=== PATIENT | female | born 1970 ===

== ENCOUNTER 2016-09-02 12:16 | Emergency (ER) | payer MEDICAID ==
[2016-09-02 12:25] VITALS: BMI 34.0
[2016-09-02 12:28] VITALS: O2SAT 98
[2016-09-02] MEDS ORDERED: Sodium Chloride 0.9% 1,000 ML IV ONE (13:19)
--- NOTE | 2016-09-02 13:23 | C.PDOC ---
History Of Present Illness <Lisy Aguilar DO - Last Filed: 09/02/16 13:20> <Jack Mendoza - Last Filed: 09/03/16 13:57> Patient is a 46 year old female with past medical history of HTN, uterine fibroids, and anemia requiring transfusion 2 years ago who presents to the ED with complaint of dizziness for two days. Patient states that she feels she will faint when she feels the dizziness. Patient also complains of shortness of breath and generalized weakness. Patient reports an ER visit at another hospital approximately one month ago for chest tightness. Patient states at that time she was given albuterol treatment and symptoms resolved. Patient denies those symptoms currently. Patient also states she has been without her hypertensive medication for one week. She states she was seeing a physician in [place], but since moving back to [place] has not seen a doctor and has been without medication. Patient denies nausea, vomiting, rectal/ vaginal bleeding. ( Lisy Aguilar DO) History Per: Patient History/Exam Limitations: no limitations Onset/Duration Of Symptoms: Days Current Symptoms Are (Timing): Still Present Activity At Onset Of Symptoms: Walking Fall Associated With With Symptoms: No Severity: Mild <Lisy Aguilar DO - Last Filed: 09/02/16 13:20> <Jack Mendoza - Last Filed: 09/03/16 13:57> Time Seen by Provider: 09/02/16 12:47 Chief Complaint (Nursing): Dizziness/Lightheaded Past Medical History - Medical History PMH: Anemia, Asthma, HTN Denies: Chronic Kidney Disease - Social History Hx Tobacco Use: No Hx Alcohol Use: No Hx Substance Use: No - Immunization History Hx Tetanus Toxoid Vaccination: No Hx Influenza Vaccination: No Hx Pneumococcal Vaccination: No <Lisy Aguilar DO - Last Filed: 09/02/16 13:20> Family History: States: Other (nc) <Jack Mendoza - Last Filed: 09/03/16 13:57> Vital Signs: Last Vital Signs Temp 98.3 F 09/02/16 17:01 Pulse 83 09/02/16 17:01 Resp 18 09/02/16 17:01 BP 122/79 09/02/16 17:01 Pulse Ox 98 09/02/16 17:01 - [facility] Procedures CLOSED ENDOSCOPIC BIOPSY OF LARGE INTESTINE (09/01/14) ESOPHAGOGASTRODUODENOSCOPY [EGD] W/CLOSED BIOPSY (09/01/14) Review Of Systems Constitutional: Positive for: Weakness. Negative for: Fever, Chills ENT: Negative for: Nose Congestion Cardiovascular: Positive for: Light Headedness. Negative for: Chest Pain, Palpitations Respiratory: Positive for: SOB with Excertion. Negative for: Wheezing Gastrointestinal: Negative for: Nausea, Vomiting, Abdominal Pain Genitourinary: Negative for: Dysuria <Lisy Aguilar DO - Last Filed: 09/02/16 13:20> Physical Exam - Physical Exam Appears: Well, Non-toxic, No Acute Distress Skin: Normal Color Head: Atraumatic, Normacephalic Eye(s): bilateral: PERRL, EOMI Nose: Normal, No Discharge Oral Mucosa: Moist Tongue: Normal Appearing Lips: Normal Appearing Neck: Normal ROM Cardiovascular: Rhythm Regular Respiratory: Normal Breath Sounds Gastrointestinal/Abdominal: Soft, No Tenderness Neurological/Psych: Oriented x3, Normal Speech, Normal Cranial Nerves <Lisy Aguilar DO - Last Filed: 09/02/16 13:20> ED Course And Treatment O2 Sat by Pulse Oximetry: 98 <Lisy Aguilar DO - Last Filed: 09/02/16 13:20> - Laboratory Results Result Diagrams: 09/02/16 14:32 09/02/16 14:32 <Jack Mendoza - Last Filed: 09/03/16 13:57> Medical Decision Making <Lisy Aguilar DO - Last Filed: 09/02/16 13:20> <Jack Mendoza - Last Filed: 09/03/16 13:57> Medical Decision Making: Physician Attestation: Patient was seen and examined with the resident. I have reviewed the chart and agree that the record accurately reflects my personal performance of the history , physical exam, medical decision making, and the department course for this patient. I have also personally directed, reviewed, and agree with the discharge instructions and disposition. small RLL streaky opacity- will rx azithromycin wells low risk for pe and perc negative pt feels better after IVF. labs unremarkable, VSS, exam benign. she already has an appt w her pcp on and is comfortable w dc at this time. (Jack Mendoza) Disposition <Lisy Aguilar DO - Last Filed: 09/02/16 13:20> - Disposition Disposition Time: 16:45 <Jack Mendoza - Last Filed: 09/03/16 13:57> - Disposition Disposition: HOME/ ROUTINE Condition: IMPROVED Additional Instructions: Please follow up with your doctor on Monday as scheduled. Return to the ER for any worsening symptoms, chest pain, fever or for any other concerns. Prescriptions: Azithromycin [Zithromax] 250 mg PO DAILY #6 tab Instructions: Lightheadedness (ED) Forms: General Discharge Instructions - Clinical Impression Clinical Impression: Lightheadedness
--- NOTE | 2016-09-02 13:33 | RAD ---
HISTORY: dyspnea COMPARISON: No prior. TECHNIQUE: Chest PA and lateral FINDINGS: LUNGS: Hazy opacity in the right lung base. PLEURA: No significant pleural effusion identified. No pneumothorax apparent. CARDIOVASCULAR: Normal. OSSEOUS STRUCTURES: No significant abnormalities. VISUALIZED UPPER ABDOMEN: Normal. OTHER FINDINGS: None. IMPRESSION: Hazy opacity in the right lung base. Follow-up to resolution recommended.
[2016-09-02 14:37] LABS: BASO % 1.2 % (0.0-2.0); EOS # 0.1 K/uL (0.0-0.7); EOS % 2.2 % (0.0-4.0); HEMATOCRIT 40.8 % (34.0-47.0); LYMPH # 1.4 K/uL (1.0-4.3); LYMPH % 41.7 % (20.0-40.0); MEAN CELL VOLUME 91.8 fL (81.0-99.0); MEAN CORPUSCULAR HGB CONC 32.7 g/dL (33.0-37.0); MEAN PLATELET VOLUME 8.1 fL (7.2-11.7); MONO # 0.3 K/uL (0.0-0.8); MONO % 9.1 % (0.0-10.0); RED CELL DISTRIBUTION WIDTH 11.8 % (11.5-14.5); WHITE BLOOD COUNT 3.4 K/uL (4.8-10.8)
[2016-09-02 14:44] LABS: CHLORIDE 99 mmol/L (98-107)
[2016-09-02 14:45] LABS: POTASSIUM 4.3 mmol/L (3.6-5.2); SODIUM 138 mmol/L (132-148)
[2016-09-02 14:47] LABS: ALB/GLOB RATIO 1.2 (1.0-2.1); ALKALINE PHOSPHATASE 66 U/L (38-126); AST/SGOT 38 U/L (14-36); BILIRUBIN,TOTAL 0.5 mg/dL (0.2-1.3); CARBON DIOXIDE 27 mmol/L (22-30); GFR AFRICAN-AMERICAN > 60; TOTAL PROTEIN 7.5 g/dL (6.3-8.3)
[2016-09-02 14:48] LABS: ALT/SGPT 41 U/L (9-52); BLOOD UREA NITROGEN 9 mg/dL (7-17); CALCIUM 9.3 mg/dl (8.6-10.4); GLUCOSE,RANDOM 84 mg/dL (65-105)
[2016-09-02] MEDS ORDERED: Sodium Chloride 0.9% 1,000 ML ONE (15:33)
[2016-09-02 17:02] VITALS: BP 122/79; PULSE 83; RESP 18; TEMP 98.3
[2016-09-02 17:41] LABS: RBC URINE 1 /hpf (0-3); URINE BACTERIA RARE (<OCC); URINE BILIRUBIN NEGATIVE (NEGATIVE); URINE BLOOD NEGATIVE (NEGATIVE); URINE COLOR Yellow (YELLOW); URINE GLUCOSE (UA) NORMAL (Normal); URINE KETONE NEGATIVE (NEGATIVE); URINE PROTEIN NEGATIVE (NEGATIVE); URINE UROBILINOGEN NORMAL mg/dL (0.2-1.0); WBC URINE 2 /hpf (0-5)
[2016-09-02 17:44] LABS: URINE LEUKOCYTE ESTERASE NEGATIVE Leu/uL (Negative)
== END 2016-09-02 17:16 | disposition home or self-care (01) ==
LOC: C.ER 12:16
DX: R42 Dizziness and giddiness (principal)
CPT/HCPCS: 71020; 80053; 81001; 84702; 84703; 85025; 96360; 99285; J7040